=== PATIENT | female | born 1935 | race Caucasian/White ===

== ENCOUNTER → 2019-08-08 | Outpatient (CLI) | payer OTHER, BC ==
[~2019-08-08] MED LIST: ALEVE220 MG PO; AMITRIPTYLINE H10 M3 PO; CENTRUM SILVER1 EAC4 PO; MIRALAX17 G1 PO; NORVASC5 MG PO; TRAMADOL 50 MG50 MG PO; VISION PLUS LU1 EACH PO
== END ==
LOC: RAD 11:15
DX: M43.17 Spondylolisthesis, lumbosacral region (principal); M47.816 Spondylosis without myelopathy or radiculopathy, lumbar region; M25.78 Osteophyte, vertebrae; M48.061 Spinal stenosis, lumbar region without neurogenic claudication; M12.88 Other specific arthropathies, not elsewhere classified, other specified site; M48.56XA Collapsed vertebra, not elsewhere classified, lumbar region, initial encounter for fracture